=== PATIENT | female | born 1955 | race African-American/Black ===

== ENCOUNTER 2017-01-04 10:39 | Emergency (ER) | payer OTHER ==
[~2017-01-04] VITALS: Ht 167.6 cm; Wt 104.3 kg
[~2017-01-04 10:39] MED LIST: NORCO 10-325 T1 EACH PO
[2017-01-04] MEDS ORDERED: KEFLEX500 MG PO (13:11)
[2017-01-04 13:15] VITALS: BP 164/83
== END 2017-01-04 13:16 | disposition home or self-care (01) ==
LOC: ER 10:39
DX: S61.213A Laceration without foreign body of left middle finger without damage to nail, initial encounter (principal); G89.29 Other chronic pain; I10 Essential (primary) hypertension; Z88.5 Allergy status to narcotic agent; Z87.891 Personal history of nicotine dependence; W26.9XXA Contact with unspecified sharp object(s), initial encounter; Y93.89 Activity, other specified; Y92.89 Other specified places as the place of occurrence of the external cause; Y99.8 Other external cause status

== ENCOUNTER 2019-10-21 02:10 | Emergency (ER) | payer OTHER ==
[~2019-10-21] VITALS: Ht 170.2 cm; Wt 113.4 kg
[~2019-10-21 02:10] MED LIST changes: +KEFLEX500 MG PO
[2019-10-21 04:03] LABS: ABSOLUTE NEUTROPHILS 16.7 thou/uL (1.4-8.2); ANION GAP 9 mmol/L (7-16); BASOPHILS 0.4 % (0.0-2.0); BUN 12 mg/dL (7-18); CALCIUM 8.8 mg/dL (8.5-10.1); CHLORIDE 98 mmol/L (98-107); CO2 26 mmol/L (21-32); CREATININE 1.2 mg/dL (0.6-1.0); GLUCOSE 110 mg/dL (74-106); HEMATOCRIT 45.2 % (37.0-47.0); HEMOGLOBIN 15.2 gm/dL (12.0-15.0); LYMPHOCYTES 7.3 % (24.0-44.0); MCH 28.8 pg (26.0-34.0); MCHC 33.7 g/dL (28.0-37.0); MCV 85.5 fL (80.0-100.0); MONOCYTES 7.6 % (1.0-8.0); PLATELET COUNT 205 thou/uL (150-400); POLYS 84.7 % (36.0-66.0); POTASSIUM 3.6 mmol/L (3.5-5.1); RBC 5.29 mil/uL (4.20-5.00); RDW 14.5 % (10.5-14.5); SODIUM 133 mmol/L (136-145); WBC 19.7 thou/uL (4.0-11.0)
[2019-10-21 04:13] LABS: ALBUMIN 3.4 g/dL (3.4-5.0); LIPASE 80 U/L (73-393); SGOT 18 U/L (15-37); SGPT 11 U/L (30-65); TOTAL BILIRUBIN 0.7 mg/dL (0.2-1.0); TOTAL PROTEIN 7.9 g/dL (6.4-8.2); TROPONIN-I <0.06 ng/mL (<0.06)
[2019-10-21 06:15] VITALS: BP 139/77
[2019-10-21] MEDS ORDERED: ONDANSETRON ODT8 MG PO (06:30)
[2019-10-21 07:06] LABS: URINE BLOOD 3+ (Negative); URINE CLARITY CLOUDY; URINE COLOR YELLOW; URINE GLUCOSE-RANDOM* NEGATIVE (Negative); URINE KETONES 1+ (Negative); URINE NITRITE-REFLEX NEGATIVE (Negative); URINE PROTEIN (DIPSTICK) 2+ (Negative); URINE SPECIFIC GRAVITY 1.025 (1.005-1.035)
[2019-10-21 07:10] LABS: ICTOTEST (BILI CONFIRMATORY) Negative (Negative); URINE BILIRUBIN NEGATIVE (Negative); URINE LEUKOCYTES-REFLEX 1+ (Negative)
[2019-10-21 07:27] LABS: BACTERIA-REFLEX >30 Many /HPF (None Seen); CASTS None Seen /LPF (None Seen); CRYSTALS None Seen /LPF (None Seen); SQUAMOUS >10 Many /LPF (0-3); URINE RBC 3-10 Few /HPF (0-2); YEAST-REFLEX Present (None Seen)
--- NOTE | 2019-10-22 08:02 | EKG ---
[facility] [place] [address] ELECTROCARDIOGRAM REPORT Name: CHANDRAKANT VALLADARES [id number] Admission: 10/21/19 Attend Phys: Discharge: 10/21/19 Date of : 59 Report #: [id number] THIS REPORT FOR: cc: [facility] - Clinic physician unknown [facility] - Clinic physician unknown Shar Mccarthy MD [facility] THIS REPORT FOR: //name// [facility] ED Test Date: 2019-10-21 Test Time: 02:26:20 Pat Name: CHANDRAKANT VALLADARES Department: Room: Gender: F 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: [place] [id number] : 1955 Requested By: Richard Andersen Order Number: [id number] MD: Shar Mccarthy Measurements Intervals [place] Rate: 105 P: 77 UT: 167 QRS: 15 QRSD: 84 T: 104 QT: 356 QTc: 471 Interpretive Statements Sinus tachycardia Ventricular premature complexes Right atrial enlargement Possible septal infarct, age indeterminate Abnormal T, consider ischemia, lateral leads Baseline wander in lead(s) V2 No previous ECG available for comparison Electronically Signed On 10-22-2019 8:02:20 CDT by Shar Mccarthy [email or web address] <ELECTRONICALLY SIGNED> By: Shar Mccarthy MD, [facility] 10/22/19 0802 5 Shar Mccarthy MD, [facility] /EPI
== END 2019-10-21 07:03 | disposition home or self-care (01) ==
LOC: ER 02:10
PROVIDERS: Emergency Medicine
DX: J06.9 Acute upper respiratory infection, unspecified (principal); R11.2 Nausea with vomiting, unspecified; R51 Headache; I10 Essential (primary) hypertension; G89.29 Other chronic pain; M54.9 Dorsalgia, unspecified; Z20.828 Contact with and (suspected) exposure to other viral communicable diseases; Z87.891 Personal history of nicotine dependence; Z88.5 Allergy status to narcotic agent; Z79.899 Other long term (current) drug therapy

== ENCOUNTER 2020-10-28 08:21 | Emergency (ER) | payer OTHER ==
[~2020-10-28] VITALS: Ht 167.6 cm; Wt 104.3 kg
--- NOTE | ~2020-10-28 | EMS ---
[facility] [address] [place] [address] EMS Patient Care Report Name: CHANDRAKANT VALLADARES Room #: DEP SHIRA Gay#: [id number] Admission: 10/28/20 Attend Phys: Discharge: 10/28/20 Date of : 59 Report #: [id number] THIS REPORT FOR: //name// Report Transmitted: 10/29/2020 10:31 EMS Care Summary [place], [place]/[facility] Incident [id number] @ 10/28/2020 07:42 Incident Location [address] [place] [address] Patient CHANDRAKANT VALLADARES Female, 65 Years 1955 Patient Address [address] [place], [place] [id number] Patient History Hypertension (HTN),Knee Replacement,Back Pain (Chronic),Back Surgery, Patient Allergies No known allergies, Patient Medications Ibuprofen, Chief Complaint Nausea/Vomiting Disposition Transported No Lights/[place] Dispatch Reason Sick Person Transported To [facility] Narrative Medic 41 dispatched to a residence on a sick. Patient states she began feeling nauseous and having a burning sensation in her back late last night and could not take it any longer. Patient denies any [facility] [address] [place] [address] EMS Patient Care Report Name: CHANDRAKANT VALLADARES Room #: DEP SHIRA Gay#: [id number] Admission: 10/28/20 Attend Phys: Discharge: 10/28/20 Date of : 59 Report #: [id number] recent trauma. Upon EMS arrival patient was found lying in bed with her family around. Patient was assisted onto stair chair and moved to cot outside where she was belted in and loaded into ambulance. Vitals were taken and monitored en route to [facility] where patient was assisted onto bed and rails raised. EMS back in service with no further incidents. Initial Vitals @08:08P: 87,R: 16,BP: 156/88,Pain: 10/10,GCS: 15,SpO2: 99,Revised Trauma: 12, @08:06P: 88,R: 16,BP: 168/100,Pain: 10/10,GCS: 15,Temp: 98.2F,Glucose: 96,SpO2: 99,Revised Trauma: 12, Assessments @07:54MENTAL:Time Oriented,Person Oriented,Event Oriented,Place Oriented,SKIN:HEENT:Eyes: Left Pupil: 3-mm,Eyes: Right Pupil: 3-mm,LUNG SOUNDS:General: Nausea,General: Vomiting,ABDOMEN:General: Nausea,General: Vomiting,PELVIS//GI:EXTREMITIES:Capillary Refill: Left Upper: < 2 Sec,PULSE:Radial: 2+ Normal,NEURO: Impression Vomiting Procedures @07:54ALS AssessmentResponse: UnchangedSucceeded@08:10BLS AssessmentResponse: Unchanged Timeline 07:41,Call Received 07:41,Dispatch Notified 07:42,Dispatched 07:44,En Route 07:53,On Scene 07:54,At Patient 07:54,ALS Assessment,Response: UnchangedSucceeded, 08:06,BP: 168/100 M,PULSE: 88,RR: 16 R,SPO2: 99 Ox,ETCO2: ,B,PAIN: 10,GCS: 15, 08:08,BP: 156/88 M,PULSE: 87,RR: 16 R,SPO2: 99 Ox,ETCO2: ,BG: ,PAIN: 10,GCS: 15, 08:09,Depart Scene 08:10,BLS Assessment,Response: Unchanged 08:18,At Destination 08:31,Call Closed Disclaimer v1.1 Copyright 2020 [employer] [facility] [address] [place] [address] EMS Patient Care Report Name: CHANDRAKANT VALLADARES Room #: DEP [facility].#: [id number] Admission: 10/28/20 Attend Phys: Discharge: 10/28/20 Date of : 59 Report #: [id number] This EMS Care Summary contains data elements from the applicable legal record (which may be displayed differently). It is designed to provide pertinent information for the following purposes: continuity of care, clinical quality, and state data reporting. The complete legal record is available to ED staff and administrators of the receiving hospital in [employer]'s Patient Tracker. All data is provided "as is."
[~2020-10-28 08:21] MED LIST changes: +ONDANSETRON ODT8 MG PO
[2020-10-28] MEDS ORDERED: IBUPROFEN100 MG PO (08:39)
[2020-10-28 08:45] LABS: ABSOLUTE NEUTROPHILS 4.7 thou/uL (1.4-8.2); BASOPHILS 0.5 % (0.0-2.0); EOSINOPHILS 0.2 % (0.0-3.0); HEMATOCRIT 45.3 % (37.0-47.0); HEMOGLOBIN 15.3 gm/dL (12.0-15.0); LYMPHOCYTES 13.2 % (24.0-44.0); MCH 28.5 pg (26.0-34.0); MCHC 33.7 g/dL (28.0-37.0); MCV 84.5 fL (80.0-100.0); MONOCYTES 18.7 % (1.0-8.0); PLATELET COUNT 248 thou/uL (150-400); POLYS 67.4 % (36.0-66.0); RBC 5.36 mil/uL (4.20-5.00); RDW 14.2 % (10.5-14.5)
[2020-10-28 08:48] LABS: URINE BILIRUBIN NEGATIVE (Negative); URINE BLOOD 3+ (Negative); URINE CLARITY CLEAR; URINE COLOR YELLOW; URINE GLUCOSE-RANDOM* NEGATIVE (Negative); URINE KETONES NEGATIVE (Negative); URINE LEUKOCYTES-REFLEX NEGATIVE (Negative); URINE NITRITE-REFLEX NEGATIVE (Negative); URINE PROTEIN (DIPSTICK) TRACE (Negative); URINE SPECIFIC GRAVITY 1.015 (1.005-1.035); URINE UROBILINOGEN 0.2 E.U./dl (0.2-1.0)
[2020-10-28 09:03] LABS: ANION GAP 11 mmol/L (7-16); BUN 10 mg/dL (7-18); CALCIUM 9.2 mg/dL (8.5-10.1); CHLORIDE 104 mmol/L (98-107); CO2 25 mmol/L (21-32); CREATININE 1.1 mg/dL (0.6-1.0); GLUCOSE 103 mg/dL (74-106); POTASSIUM 3.8 mmol/L (3.5-5.1); SODIUM 140 mmol/L (136-145)
[2020-10-28 09:03] LABS: SQUAMOUS 0-3 Few /LPF (0-3); URINE RBC >20 Many /HPF (NONE SEEN)
[2020-10-28 09:04] LABS: BACTERIA-REFLEX 1-9 Few /HPF (None Seen); CASTS None Seen /LPF (None Seen); CRYSTALS None Seen /LPF (None Seen); URINE WBC-REFLEX 0-5 Rare /HPF (0-5)
[2020-10-28 09:14] LABS: ALBUMIN 3.8 g/dL (3.4-5.0); LIPASE 88 U/L (73-393); MAGNESIUM 1.9 mg/dL (1.8-2.4); SGOT 17 U/L (15-37); SGPT 15 U/L (14-59); TOTAL BILIRUBIN 0.4 mg/dL (0.2-1.0); TOTAL PROTEIN 8.4 g/dL (6.4-8.2); TROPONIN-I <0.06 ng/mL (<0.06)
[2020-10-28 10:15] VITALS: BP 145/81
--- NOTE | 2020-10-28 11:38 | EKG ---
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 : 1955 Requested By: Sergio Dillard Order Number: [id number] MD: Zafar Higgins Measurements Intervals [place] Rate: 84 P: 63 IN: 180 QRS: -5 QRSD: 99 T: 87 QT: 449 QTc: 531 Interpretive Statements Sinus arrhythmia Probable left atrial enlargement Left ventricular hypertrophy Anterior Q waves, possibly due to LVH Prolonged QT interval Compared to ECG 10/21/2019 02:26:20 Left ventricular hypertrophy now present Q waves now present Prolonged QT interval now present Sinus tachycardia no longer present Ventricular premature complex(es) no longer present Electronically Signed On 10-28-2020 11:38:27 CDT by Zafar Higgins [email or web address] <ELECTRONICALLY SIGNED> By: Zafar Higgins MD, FAC 10/28/20 1138 [id number] Zafar Higgins MD, [facility] /EPI
== END 2020-10-28 10:21 | disposition home or self-care (01) ==
LOC: EDBD 08:21 → ER 08:21
PROVIDERS: Emergency Medicine
DX: U07.1 COVID-19 (principal); I10 Essential (primary) hypertension; G89.29 Other chronic pain; F17.210 Nicotine dependence, cigarettes, uncomplicated; Z88.5 Allergy status to narcotic agent